=== PATIENT | male | born 1950 | race Hispanic/Latino ===

== ENCOUNTER → 2017-06-15 | Emergency (ER) | payer OTHER ==
[~2017-06-15] VITALS: Ht 172.7 cm; Wt 90.3 kg
[~2017-06-15] MED LIST: ALLOPURINOL100 MG PO; BUPIVACAINE HCL 0.5% INJ 30 ML VIAL INJ ONE; DIPHTH/TETANUS/ACEL. PERTUSSIS 0.5 ML SYR IM ONE; LISINOPRIL10 MG PO; PRAVASTATIN SOD10 MG
== END | disposition home or self-care (01) ==
LOC: FSED 12:21
DX: S60.417A Abrasion of left little finger, initial encounter (principal); W29.3XXA Contact with powered garden and outdoor hand tools and machinery, initial encounter; Y92.007 Garden or yard of unspecified non-institutional (private) residence as the place of occurrence of the external cause; I10 Essential (primary) hypertension; E78.5 Hyperlipidemia, unspecified; M10.9 Gout, unspecified
CPT/HCPCS: 99283